=== PATIENT | male | born 1950 | race African-American/Black ===

== ENCOUNTER 2024-06-24 08:54 | Outpatient (CLI) | payer OTHER | END 2024-06-24 08:55 | disposition home or self-care (01) | LOC: CSHSLEEP 08:54 | PROVIDERS: ATTEND Internal Medicine | DX: G47.30 Sleep apnea, unspecified (principal); R09.89 Other specified symptoms and signs involving the circulatory and respiratory systems; G25.89 Other specified extrapyramidal and movement disorders | CPT/HCPCS: 95800 ==